=== PATIENT | female | born 1965 | race Caucasian/White ===

== ENCOUNTER 2019-02-19 11:46 | Day surgery (SDC) | payer OTHER ==
[~2019-02-19] VITALS: Ht 152.4 cm; Wt 58.9 kg
[~2019-02-19 11:46] MED LIST: CALCIUM; CLIN300C10 PO; FER325 PO; GEMFIBROZIL; HERCEPTIN; LOPE2CAP PO; METO10TA3 PO; ONDA4TAB13 PO; ONDA4TAB35 PO; PROBIOTIC; TAMOXIFEN; VITAMIN D
[2019-02-19 12:57] VITALS: Ht 152.4 cm; Wt 58.9 kg
[2019-02-19 13:10] VITALS: BP 152/108; PULSE 59; RESP 16
[2019-02-19 14:53] VITALS: BP 140/64; PULSE 59; RESP 13
== END 2019-02-19 16:44 | disposition home or self-care (01) ==
LOC: GIL 11:46
PROVIDERS: ATTEND Internal Medicine Gastroenterology
DX: Z12.11 Encounter for screening for malignant neoplasm of colon (principal); K64.8 Other hemorrhoids